=== PATIENT | female | born 1960 | race Caucasian/White ===

== ENCOUNTER 2023-05-15 15:05 | Outpatient (OUT) | payer OTHER, BC, SELFPAY ==
--- NOTE | 2023-05-15 15:50 | CA_ITS ---
Patient Name FLO SOLARES MR# Age Sex Date Time [id number] F 05/15/2023 15:17 At the Request Of GHANSHYAM MARROQUIN ECHOCARDIOGRAM REPORT PROCEDURE: CA ECHO DOPPLER COMPLETE INDICATIONS: PVC's COMPARISON: None. DESCRIPTION: COMPLETE ECHOCARDIOGRAM Real-time transthoracic echocardiography with 2D, M-mode, spectral and color flow Doppler performed. QUALITY: Technical quality was good. LEFT VENTRICLE: Normal chamber size. Normal left ventricular wall thickness. LV EF: Global left ventricular systolic function is hyperdynamic. Visual estimation of left ventricular ejection fraction is 65-70% DIASTOLIC: Normal diastolic function. ATRIAL SEPTUM: Inadequately seen. LEFT ATRIUM: Moderate dilatation. RIGHT ATRIUM: Normal chamber size. RIGHT VENTRICLE: Normal chamber size. Normal right ventricular systolic function. TRICUSPID VALVE: Normal mobility and thickness. No stenosis with trivial regurgitation. No evidence of pulmonary hypertension. RVSP 29mmHg MITRAL VALVE: Mildly thickened with normal mobility. No evidence of mitral valve stenosis. There is no mitral annular calcification. Mild mitral regurgitation. AORTIC VALVE: Normal trileaflet appearance. Focal aortic cusp thickening and calcification. Normal leaflet mobility. No evidence of aortic valve stenosis. No aortic regurgitation. AORTIC ROOT: Normal diameter and appearance. PULMONIC VALVE: Normal thickness and mobility. No stenosis. No regurgitation. PERICARDIUM: No evidence of pericardial effusion. IVC: Collapses with inspirations. Normal size. CONCLUSION: 1. Global left ventricular systolic function is hyperdynamic; visually estimated ejection fraction is 65 to 70% 2. Normal diastolic function 3. The right ventricle is normal in size and systolic function 4. The left atrium is dilated 5. Mild mitral regurgitation Adult Echocardiography Procedure Report Left Ventricle LVEDD (3.7 - 5.6 cm): 4.51 cm LVESD (2.2 - 4.0 cm): 2.86 cm LVIVS thickness (0.6 - 1.2 cm): 0.98 cm LVPW thickness (0.5 - 1.0 cm): 1.02 cm e': 0.10 m/s E - e': 8.32 LVOT Max Gradient: 4.41 mm[Hg], 5.49 mm[Hg] LVOT Area (cm2): 1.11 m/s Peak Velocity (LVOT): 1.05 m/s, 1.17 m/s Mean Velocity (LVOT): 0.76 m/s LVOT Diameter 2.11 cm Left Ventricular Ejection Fraction: 72.69 % Left Atrium LA Volume Index (2D A2C): 47.38 ml/m2 Left Atrium Systolic Dimension: 3.50 cm Mitral Valve MV E to A Ratio: 0.82 Mitral Valve A-Wave Peak Velocity: 1.04 m/s Mitral Valve E-Wave Peak Velocity: 0.85 m/s Right Ventricle RV Internal Diastolic Dimension: 2.92 cm Aorta AO Root Diam: 3.11 cm Ascending Ao Diam: 2.88 cm Aortic Valve AoV Area (Peak Brendan): 2.51 cm2, 2.37 cm2, 2.64 cm2 AoV Area (VTI): 2.62 cm2, 2.48 cm2, 2.76 cm2 Peak Velocity(Antegrade Flow): 1.56 m/s, 1.56 m/s Peak Gradient(Antegrade Flow): 9.68 mm[Hg], 9.68 mm[Hg] Mean Velocity(Antegrade Flow): 1.10 m/s, 1.12 m/s Mean Gradient(Antegrade Flow): 5.44 mm[Hg], 5.63 mm[Hg] Velocity Time Integral: 32.97 cm, 33.54 cm Tricuspid Valve Peak Velocity (Regurgitant Flow): 2.42 m/s, 2.29 m/s, 2.19 m/s, 2.55 m/s Pulmonic Valve Mean Gradient: 3.71 mm[Hg], 3.54 mm[Hg], 2.77 mm[Hg] Mean Velocity: 0.90 m/s, 0.90 m/s, 0.79 m/s Peak Velocity: 1.18 m/s Peak Gradient: 6.64 mm[Hg], 5.49 mm[Hg], 4.76 mm[Hg] Right Atrium Right Atrium Systolic Pressure: 43.19 ml, 43.19 ml Dictated by: Kathi Dubose M.D. on 05/16/2023 at 12:37 Approved by: Kathi Dubose M.D. on 05/16/2023 at 12:40
== END 2023-05-15 15:06 | disposition home or self-care (01) ==
LOC: CARD 15:06
PROVIDERS: PCP Nurse Practitioner Family; Visit Provider Internal Medicine Cardiovascular Disease
DX: I49.3 Ventricular premature depolarization (principal); I34.0 Nonrheumatic mitral (valve) insufficiency
CPT/HCPCS: 93306